=== PATIENT | male | born 1970 | race Caucasian/White ===

== ENCOUNTER 2022-05-09 11:03 | Emergency (ER) | payer MEDICARE ==
[~2022-05-09] VITALS: Ht 203.2 cm; Wt 112.0 kg
--- NOTE | 2022-05-09 11:16 | NUR ---
[id number] FRM SCHVN C/O DIZZINESS, WENT TO NURSING STATION FEELING "FAINT" BG [employer]. ATTACHED TO MONITOR, VITALS ARE WITHIN NORMAL LIMITS, NO RESP DISTRESS NOTED. AWAITING MD ORDERS.
[2022-05-09 12:21] LABS: BASOPHILS % (AUTO) 0.3 % (0.0-2.0); EOSINOPHILS % (AUTO) 0.1 % (0.0-6.0); HEMATOCRIT 39 % (39-51); HEMOGLOBIN 13.1 g/dL (13.5-17.5); LYMPHOCYTES % (AUTO) 19.4 % (20.0-44.0); MEAN CORPUSCULAR HGB CONC 34 g/dl (31.0-36.0); MEAN CORPUSCULAR VOLUME 84 fL (80-96); MONOCYTES # (AUTO) 0.5 K/uL (0.1-1.30); MONOCYTES % (AUTO) 8.5 % (2.0-12.0); NEUTROPHILS # (AUTO) 3.8 K/uL (1.8-8.9); NEUTROPHILS % (AUTO) 71.7 % (43.0-81.0); PLATELET COUNT (AUTO) 188 K/uL (150-450); RED BLOOD CELL COUNT(AUTO) 4.69 MIL/uL (4.5-6.0); WHITE BLOOD COUNT (AUTO) 5.3 K/uL (4.3-11.0)
[2022-05-09 12:55] LABS: CALCIUM, SERUM 8.9 mg/dL (8.5-10.1); CARBON DIOXIDE 32 mmol/L (21-32); CHLORIDE 107 mmol/L (98-107); CREATININE 0.9 mg/dL (0.6-1.3); GLUCOSE 124 mg/dL (74-106); SODIUM SERUM 144 mmol/L (136-145); UREA NITROGEN, BLOOD 11 mg/dL (7-18)
--- NOTE | 2022-05-09 13:49 | NUR ---
[facility] CALLED FOR TRANSPORT, ETA 60-75 MIN PER [facility].
--- NOTE | 2022-05-09 14:09 | NUR ---
CALLED EDWIN TO LET HER KNOW PT WILL BE COMING BACK TO HER BOARDING CARE
--- NOTE | 2022-05-09 15:08 | NUR ---
[facility] TRANSPORTATION ARRIVED, PT BEING TRANSFERED BACK TO HIS BOARDING FACLITY IN STABLE CONDITION.
[2022-05-09 15:09] VITALS: BP 136/82
== END 2022-05-09 15:09 | disposition home or self-care (01) ==
LOC: ER 11:05
DX: R42 Dizziness and giddiness (principal); E11.9 Type 2 diabetes mellitus without complications; M19.90 Unspecified osteoarthritis, unspecified site; Z88.8 Allergy status to other drugs, medicaments and biological substances
CPT/HCPCS: 99285; 71045; 93005; 85025; 80048; 36415; 84484; A6403